=== PATIENT | female | born 1935 | race Caucasian/White ===

== ENCOUNTER 2016-12-08 09:43 | Day surgery (SDC) | payer MEDICARE, MEDICAID ==
[~2016-12-08] VITALS: Ht 160 cm; Wt 64.0 kg
--- NOTE | 2016-12-08 11:40 | Operative Note ---
Endoscopy Report Date: 12/08/16 Preoperative diagnosis: Anemia, weight loss Procedure Type of procedure: 1. Esophagogastroduodenoscopy with biopsies 2. Total colonoscopy to terminal ileum with snare polypectomy Indications: Patient is a somewhat debilitated elderly white female who was originally referred from Dr. Paty Roldan in [place] for upper endoscopy and colonoscopy to evaluate anemia and weight loss. Patient has undergone several endoscopic procedures in the past by Dr. Rebollar as well as a upper endoscopy by Dr. Wang in 2013. Most recent upper endoscopy by Dr. Rebollar in April 2015 revealed paraesophageal hernia. Recently she has noted some back pain and right-sided abdominal pain. Blood work has revealed some progressive anemia with routine blood work showing hemoglobin of 12.8 and hematocrit of 39 in April of this year and 9.6 and 30 in September of this year. She describes some abdominal bloating, vomiting, and fecal urgency. She did undergo colonoscopy in [address] Rebollar and this revealed significant diverticulosis which required contrast enema as the area could not be traversed. However, she did have follow- up colonoscopy in [address] Boone Wang and had diverticulosis and had some polyps removed. Ascending colon polyp revealed tubular adenoma with focal high- grade dysplasia. Apparently she has not undergone a follow-up colonoscopy as I detect no record. She denies any melena or rectal bleeding. After my initial consultation I had her undergo CT scan of the abdomen and pelvis. This revealed a hiatal hernia and diverticulosis. When questioned the patient states she is "not doing very well". She has ongoing symptoms of back pain radiating around to her abdomen. She states that she is losing weight. Consent was obtained and patient was taken to same-day surgery endoscopy procedure room. She was positioned in a lateral decubitus position. Adequate intravenous sedation was achieved with anesthesia titration of propofol. Attention was first turned to upper endoscopy. Olympus endoscope was inserted via the oropharynx and advanced through the esophagus. Esophagus appeared relatively unremarkable other than some minor tortuosity. Stomach was cannulated and insufflated. Reflection revealed a moderately large hiatal hernia. Is actually. Be more of a sliding hiatal hernia and paraesophageal hernia. Gastric antral mucosal biopsy was obtained for CLOtest for H. pylori. Pylorus was traversed. Duodenal bulb and duodenal sweep were normal. Duodenal biopsy was obtained. Stomach was desufflated and the endoscope was withdrawn. Overall upper endoscopy relatively unremarkable other than appreciable hiatal hernia. Next attention was turned colonoscopy. Variable stiffness Olympus colonoscope was inserted via the anus. With some difficulty it was advanced to the cecum. She had a floppy redundant colon and also had profound sigmoid diverticulosis. Ileocecal valve and appendiceal orifice were clearly identified. Colonoscope was advanced a generous distance into the terminal ileum which appeared grossly normal. Was withdrawn through the colon with careful surveillance. In the sigmoid colon there is some profound diverticulosis but no evidence of any diverticulitis. In the rectosigmoid region there is a small diminutive polyp removed with cold snare. Retroflexion revealed some internal hemorrhoids. Colonoscope was withdrawn. Findings 1. Hiatal Hernia 2. Polyp 3. Diverticulosis Follow-Up Follow-Up: No findings on upper endoscopy to duodenum or colonoscopy to terminal ileum which would explain her anemia and weight loss. This may be metabolic. at 8012
[2016-12-08 13:37] VITALS: BP 151/94
== END 2016-12-08 12:30 | disposition home or self-care (01) ==
LOC: SDC 09:43
PROVIDERS: Surgery
PROC: 0DBN8ZX Excision of Sigmoid Colon, Via Natural or Artificial Opening Endoscopic, Diagnostic (ICD-10-PCS; 2016-12-08)
PROC: 0DB98ZX Excision of Duodenum, Via Natural or Artificial Opening Endoscopic, Diagnostic (ICD-10-PCS; 2016-12-08)
PROC: 0DB78ZX Excision of Stomach, Pylorus, Via Natural or Artificial Opening Endoscopic, Diagnostic (ICD-10-PCS; 2016-12-08)
PROC: 0DBN8ZX Excision of Sigmoid Colon, Via Natural or Artificial Opening Endoscopic, Diagnostic (ICD-10-PCS; principal; 2016-12-08 11:30)
DX: D64.9 Anemia, unspecified (principal); K57.90 Diverticulosis of intestine, part unspecified, without perforation or abscess without bleeding; K63.5 Polyp of colon; R63.4 Abnormal weight loss; K44.9 Diaphragmatic hernia without obstruction or gangrene

== ENCOUNTER → 2017-01-11 | Outpatient (CLI) | payer MEDICARE, MEDICAID ==
--- NOTE | 2017-01-21 14:15 | RADIOLOGY REPORT PS360 ---
CT CHEST W/O CONTRAST HISTORY: SOLITARY PULMONARY NODULE,ABNORMAL WEIGHT [id number]. Patient Age: 81 years: Female Ordering Physician: HALEY GONSALES MD MPARISON: 07/25/2015, 05/03/2015 and 09/05/2013 CT chest FINDINGS: Stable enlarged Right lobe of thyroid gland is. Lung benavides. The small density at the periphery of the right upper lobe is less evident. More linear in character appears to be an now small area of scarring at this point & not of concern... No new nodules are evident.. Longer term follow-up adequate at this point Small patchy area of density posterior RUL just above the major fissure has shown significant regression as well with scant residual scarring reflecting postinflammatory focus. Small calcified benign granulomas are seen at the lung benavides bilaterally have remained stable. Several mentioned below: Right chest: Calcified granuloma 5 mm length seen at the RUL just superior to the minor fissure. At least 3 other roughly 5 mm calcified granulomas at the RLL. Left lung: scattered benign calcified granulomas seen LLL as on image 45 & 48, as well as anterior VAZQUEZ on axial 30 slice Stable very small nodes in mediastinum.. No significant hilar no mediastinal adenopathy or mass. The Dense Calcified nodes most hilar regions, most notable at right yanira. Reflect old granulomatous disease disease. .. .. Coronaryartery calcifications are again noted. Moderate to generous size hiatal hernia is noted uppermost abdomen. Cholecystectomy. No significant findings... Minor Fibrotic changes are present in the medial left lung base. As well as overlying the marginal osteophytes at right lung base.. There is tortuosity of the thoracic aorta. Prominent facet hypertrophy is seen at the spine most evident beginning at the upper lumbar mild dextroscoliosis T-spine with generous marginal marginal osteophytes throughout T-spine.. Scattered small lymph nodes are present within the axilla unchanged. Upper abdominal images are unremarkable IMPRESSION: 1. Regression of the small nodular density at the periphery of the right upper lobe. . Regression of the patchy density posterior RUL just superior to the major fissure. Only Minimal residual scarring both sites suggest result postinflammatory changes . No new areas of concern. 2. Old granulomatous disease with scattered calcified granulomas lung benavides bilateral 3. Moderate/generous Hiatal hernia. 4. Stable mild enlarged right lobe of the thyroid gland
== END ==
LOC: RAD 12:44
DX: R91.1 Solitary pulmonary nodule (principal); R63.4 Abnormal weight loss

== ENCOUNTER 2017-03-12 13:36 | Emergency (ER) | payer MEDICARE, MEDICAID ==
[~2017-03-12] VITALS: Ht 160 cm; Wt 64.9 kg
--- OUTSIDE RECORDS SUMMARY | 2017-03-12 13:43 | External Medical Summary Rpt | CCD ---
Author Author , DANIEL ELIZABETH Address Unknown Phone [email or web address] Purpose Continuity of Care Document - 10-06-2016 through 2016 Problems Code Diagnosis DOS Provider Status 250.00 M54.16 Radiculopat hy, lumbar region M54.31 Sciatica, right side Allergies, Adverse Reactions, Alerts Clinical Alert Notifications Alert Diabetes: no eye exam in the last 365 days Diabetes: no lipid panel in the last 365 days Diabetes: no urine protein screening in the last 365 days Results Labs Lab Lab Date Result Refere Interp Status Commen Order Detail nces retati t Range on UA Dipstick Pnl Ur (10-06-2016 14:23) Comment: Urine microscopic not indicated. Color [id number] Yellow, complet Ur 017 09 Straw ed 14:23 Yellow color SCT Urobili 1.0 0.2 - complet nogen 017 E.U./dL 1.0 ed Ur Ql 14:23 E.U./dL Strip Nitrite [id number] Negativ complet Ur Ql 017 09 e ed Strip 14:23 Negativ e SCT Leukocy [id number] Negativ complet te 017 09 e ed esteras 14:23 Negativ e Ur Ql e SCT Strip.a uto Prot Ur [id number] Negativ complet Ql 017 09 e ed Strip 14:23 Negativ e SCT Hgb Ur [id number] Negativ complet Ql 017 09 e ed Strip.a 14:23 Negativ uto e SCT Bilirub [id number] Negativ complet Ur Ql 017 09 e ed Strip 14:23 Negativ e SCT Ketones [id number] Negativ complet Ur Ql 017 09 e ed Strip 14:23 Negativ e SCT Glucose [id number] Negativ complet Ur 017 09 e ed Strip-m 14:23 Negativ Cnc e SCT Sp Gr 1.015 1.001-1 complet Ur 017 .030 ed Strip 14:23 pH Ur 5.5 5.0-8.0 complet Strip.a 017 ed uto 14:23 Clarity [id number] Clear complet Ur 017 01 ed 14:23 Clear SCT
--- OUTSIDE RECORDS SUMMARY | 2017-03-12 13:43 | External Medical Summary Rpt | CCD ---
Author Author , DANIEL ELIZABETH Address Unknown Phone [email or web address] Purpose Continuity of Care Document - 10-06-2016 [...] 14:23) Comment: Urine microscopic not indicated. Color [id number] Yellow, complet Ur 017 09 Straw ed 14:23 Yellow color SCT Urobili 1.0 0.2 - complet nogen 017 E.U./dL 1.0 ed Ur Ql 14:23 E.U./dL Strip Nitrite [id number] Negativ complet Ur Ql 017 09 e ed Strip 14:23 Negativ e SCT Leukocy [id number] Negativ complet te 017 09 e ed esteras 14:23 Negativ e Ur Ql e SCT Strip.a uto Prot Ur [id number] Negativ complet Ql 017 09 e ed Strip 14:23 Negativ e SCT Hgb Ur [id number] Negativ complet Ql 017 09 e ed Strip.a 14:23 Negativ uto e SCT Bilirub [id number] Negativ complet Ur Ql 017 09 e ed Strip 14:23 Negativ e SCT Ketones [id number] Negativ complet Ur Ql 017 09 e ed Strip 14:23 Negativ e SCT Glucose [id number] Negativ complet Ur 017 09 e ed Strip-m 14:23 Negativ Cnc e SCT Sp Gr 1.015 1.001-1 complet Ur 017 .030 ed Strip 14:23 pH Ur 5.5 5.0-8.0 complet Strip.a 017 ed uto 14:23 Clarity [id number] Clear complet Ur 017 01 ed 14:23 Clear SCT
--- OUTSIDE RECORDS SUMMARY | 2017-03-12 13:44 | External Medical Summary Rpt | CCD ---
Author Author [employer] Organization [employer] Address Unknown Phone Unavailable Purpose Continuity of Care Document - through 2016
--- OUTSIDE RECORDS SUMMARY | 2017-03-12 13:44 | External Medical Summary Rpt | CCD ---
Demographics Preferred Language Gambian Marital Status Unknown Pentecostal Affiliation Unknown Race Unknown Ethnic Group Unknown Author Author , GLENN ELIZABETH Address Unknown Phone Immunization No patient found.
--- OUTSIDE RECORDS SUMMARY | 2017-03-12 13:44 | External Medical Summary Rpt | CCD ---
Demographics Preferred Language Russian Marital Status Unknown Sikh Affiliation Unknown Race Unknown Ethnic Group Unknown Author Author , GLENN ELIZABETH Address Unknown Phone Immunization No patient found.
--- NOTE | 2017-03-12 14:28 | RADIOLOGY REPORT PS360 ---
CHEST(2 VIEWS-NOT PORTABLE) COMPARISON: PA and lateral chest 11/12/2015 HISTORY: Cough and congestion TECHNIQUE: PA and lateral chest FINDINGS: The lung benavides are well expanded and appear clear of infiltrate. There is moderate aortic tortuosity but no cardiomegaly. There is a [id number] sized hiatal hernia. Again noted are surgical clips overlying the right humeral head likely from previous rotator cuff surgery and there are deftly is a high riding humeral head with subacromial stenosis seen. IMPRESSION: Stable chest with hiatal hernia., No acute pathology noted
--- NOTE | 2017-03-12 14:28 | RADIOLOGY REPORT PS360 ---
CHEST(2 VIEWS-NOT PORTABLE) COMPARISON: PA and lateral chest 11/12/2015 HISTORY: Cough and congestion TECHNIQUE: PA and lateral chest FINDINGS: The lung benavides are well expanded and appear clear of infiltrate. There is moderate aortic tortuosity but no cardiomegaly. There is a yqego-iv-slcndtax sized hiatal hernia. Again noted are surgical clips overlying the right humeral head likely from previous rotator cuff surgery and there are deftly is a high riding humeral head with subacromial stenosis seen. IMPRESSION: Stable chest with hiatal hernia., No acute pathology noted
--- NOTE | 2017-03-12 14:32 | Urgent Treatment Center Report ---
History of Present Issue Date/Time Seen by Provider 03/12/17 1431 Visit Reason Pt arrived:Walked Presenting Problem:PT C/O HEADACHE, COUGH, CONGESTION SINCE LAST WEEK Location if Accident: Onset of symptoms date/time:/ or onset unknown for:MEDICAL HX UNKNOWN Have you (or family members/close friends) recently traveled outside the [place]? N If Yes, where/when: Have you had exposure to infectious disease within the past month? TB? Other? Specify: Here w/ spouse c/o continued cough, hoarseness, nasal congestion since last Wednesday, [address] Callahan's [facility] one week ago today, dx viral but prescribed zpack and unknown nose spray. Little to no improvement. Cough worse at night. Trouble sleeping. Denies hx of COPD but reports seeing Dr. 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 Supposed to use Breo daily but doesn't always use it because feels "swimmy headed" after use. Has nebs that she uses as needed and they help w/ SOA and cough. Sputum green. Feeling feverish at times at night. Unsure if fevers. No known sick contacts. States she requested CXR and steroids at appt last Wednesday but neither were done or given. hx of HTN w/ elevated BP she reports. Taking lisinopril "but still up and down". Headaches "up and down as well". Aware likely related to BP and pt agrees. Source patient, family Exam Limitations no limitations ALLERGIES Coded Allergies: Penicillins (I-HIVES 05/15/15) Sulfa (Sulfonamide Antibiotics) (I-HIVES 05/15/15) History Medical History General CAD? No Angina: No NC: No Hypertension? Yes Hyperlipidemia? No CHF? No DVT? No PE? No COPD? Yes Asthma? Yes Anemia? No GERD? No Gastric ulcers? No GI Bleed? No Hernia? No Thyroid Problems? No Hypothyroidism? No CVA? Yes Seizures? No Diabetes? No Renal Insuffiency? No UTI? Yes Stones? No BPH? No GB Disease: Yes Nephritic Syndrome? No Asplenia? No Hepatitis? No Sickle Cell Disease? No Arthritis? No Migraines? No Cataracts? Yes Glaucoma? No MRSA? No HIV? No TB? No Anxiety? No Depression? No Cancer? Yes Site: UTERUS,LT OVARY More? No Immunization HX DT/Tetanus 1-4 YRS Flu LAST YEAR Pneumonia 1-4 YRS Surgical Hx Previous Surgery?Y THYROID HYSTERECTOMY RT SHOULDER SURGERY Family History Family HX Diabetes Yes CAD Yes Hypertension Yes Hyperlipidemia Yes Cancer No TB Yes Social History Smoking Hx Smoker: Never Smoker Tobacco: No Alcohol Alcohol: No Review of Systems All Other Systems Reviewed and Negative Constitutional see HPI, denies chills, denies malaise, denies weakness Eyes denies drainage ENT see HPI, nose discharge, nose congestion, throat pain (initially, resolved). denies: ear pain. Respiratory see HPI Cardiovascular denies chest pain, denies palpitations Gastrointestinal denies no symptoms reported Musculoskeletal denies neck pain Skin denies rash Psychiatric/Neurological denies other (dizziness) Physical Exam Vital Signs Vital Signs Date Time Temp Pulse Resp B/P Pulse O2 O2 Flow FiO2 Ox Delivery Rate 03/12 1346 98.2 90 14 189/107 98 General Appearance normal appearance, no apparent distress Eye Exam - bilateral eye normal exam Ear, Nose, Throat normal ENT inspection (x/ hoarse) Neck non-tender, supple Respiratory Status Yes: trachea midline, chest symmetrical, non tender chest, non productive cough (not frequently). No: respiratory distress, use of accessory muscles, pain on inspiration, pain on expiration. Lung Sounds anterior: lungs clear. posterior: lungs clear. bilateral: lungs clear. Cardiovascular regular rate/rhythm, no peripheral edema, no murmur Neurologic alert, oriented x 3 Skin normal color, warm/dry Lymphatic no adenopathy Medical Decision Making LABS/Meds/Orders Pt receiving controlled substance in ED? No Departure Departure Time of Disposition 1512 Disposition DC Home or Self Care(routine) Clinical Impression Primary Impression: Upper respiratory virus Secondary Impressions: Cough High blood pressure Qualifiers: Hypertension type: unspecified Qualified Code: I10 - Essential ( primary) hypertension Condition STABLE Referrals KIMMIE YOUNG (Family) Follow up with Primary care, Divya or Dr. Callahan for new, worsening or persistant symptoms but if you can not get in there, return to [facility]. Patient Instructions DI for Cough -- Adult, DI for High Blood Pressure, DI for Viral Upper Respiratory Infection -- Adult Additional Instructions + Monitor BP at home and if remains >140/90 then she needs to see Dr. Hassan for possible medication changes. * Monitor Temp. Feeling feverish is not the same as having a fever. Follow up if fever >100. * humidifier/vaporizer/hot steamy shower * Breo daily. Rescue Inhaler or nebulizer every 4-6 hours as needed like we discussed. Should help open airways and improve cough, wheezing, shortness of breath. * Mucinex during the day for your cough and cough suppressant only at night. Be sure to drink lots of water. Insurance may not cover a prescription of mucinex. Might be cheaper to get 400mg tablets and take 2 tablets morning, midday and evening all with lots of water. * Tessalon Perles will not cause drowsiness but use at bedtime to help stop cough so that you can get some rest * Start steroid today. Helps with inflammation therefore, cough and wheezing. Follow directions on package. Rvwd side effects. Pt reports they have taken them before. Discharge Counseling Counseled pt/family regarding diagnosis, test results, medications/RX, home care, follow up needs Prescriptions Current Visit Scripts Benzonatate 200 MG PO QHSP PRN cough #10 SGL Prednisone (Prednisone 20MG) 20 MG PO BID #10 TAB at 2024
[2017-03-12] MEDS ORDERED: PREDNISONE 20MG20 MG PO (15:16)
[2017-03-12] MEDS ORDERED: BENZONATATE200 MG PO (15:16)
[2017-03-12 15:22] VITALS: BP 180/94
== END 2017-03-12 15:22 | disposition home or self-care (01) ==
LOC: UTC 13:36
DX: J06.9 Acute upper respiratory infection, unspecified (principal); I10 Essential (primary) hypertension; Z88.0 Allergy status to penicillin; Z88.2 Allergy status to sulfonamides; J44.9 Chronic obstructive pulmonary disease, unspecified